=== PATIENT | female | born 1980 | race Caucasian/White ===

== ENCOUNTER 2021-10-15 03:51 | Emergency (ER) | payer OTHER ==
[~2021-10-15] VITALS: Ht 167.6 cm; Wt 79.4 kg
[2021-10-15 04:50] LABS: BASOPHIL 0.3 % (0-2); EOSINOPHIL 0.1 % (0-5); HCT 48.5 % (37.0-47.0); HGB 15.5 g/dl (12.5-16.0); LYMPHOCYTE 3.8 % (15-48); MCH 25.9 pg (25.0-31.0); MCV 81.1 fL (78.0-100.0); MONOCYTE 3.9 % (0-12); MPV 10.4 fL (6.0-9.5); NRBC 0; PLT 368 K/uL (150-400); RBC 5.98 M/uL (4.20-5.40); RDW 12.4 % (11.5-14.0); WBC 17.4 K/uL (4.0-10.5)
[2021-10-15 04:55] LABS: NEUTROPHIL 91.4 % (41-80)
[2021-10-15 05:05] LABS: ALBUMIN 4.2 g/dL (3.4-5.0); ALKALINE PHOSHATASE 84 U/L (46-116); ALT 23 U/L (14-59); AST 21 U/L (15-37); BILIRUBIN - TOTAL 0.7 mg/dL (0.2-1.0); BUN 12 mg/dL (7-18); BUN/CREAT RATIO (CALC) 17.9 RATIO; CHLORIDE 102 mmol/L (98-107); CO2 (BICARBONATE) 26 mmol/L (21-32); CREATININE 0.67 mg/dL (0.51-0.95); GLOBULIN (CALCULATION) 3.9 g/dL; GLUCOSE 173 mg/dL (74-106); LIPASE 70 U/L (73-393); POTASSIUM 4.8 mmol/L (3.5-5.1); TOTAL PROTEIN 8.1 g/dL (6.4-8.2)
[2021-10-15 05:36] LABS: CORONAVIRUS 2019 SARS-COV-2 NEGATIVE (NEGATIVE); INFLUENZA A NAA NEGATIVE (NEGATIVE)
[2021-10-15] MEDS ORDERED: ONDANSETRON ODT4 MG PO (08:18)
[2021-10-15 08:34] LABS: BILIRUBIN NEGATIVE (NEGATIVE); BLOOD NEGATIVE Ery/uL (NEGATIVE); CLARITY CLEAR (CLEAR); COLOR YELLOW (YELLOW); GLUCOSE (U) NORMAL (NORMAL); LEUKOCYTES NEGATIVE Leu/uL (NEGATIVE); NITRITE NEGATIVE (NEGATIVE); PROTEIN NEGATIVE (NEGATIVE); SPECIFIC GRAVITY >=1.030 (1.001-1.030); UROBILINOGEN 0.2 mg/dL (0.2-1.0)
== END 2021-10-15 08:40 | disposition home or self-care (01) ==
LOC: FER 03:51
PROVIDERS: Internal Medicine
DX: B34.9 Viral infection, unspecified (principal); Z20.822 Contact with and (suspected) exposure to COVID-19; Z88.1 Allergy status to other antibiotic agents
CPT/HCPCS: 36415; 80053; 81003; 83690; 84145; 84484; 85025; 93005; J2405; J2550; J7120; U0002